=== PATIENT | male | born 1985 | race Caucasian/White ===

== ENCOUNTER 2023-12-31 15:34 | Emergency (ER) | payer BC ==
[~2023-12-31] VITALS: Ht 165.1 cm; Wt 104.3 kg
[2023-12-31] MEDS ORDERED: Lidocaine Hydrochloride 30 ML VIAL IM ONE (15:55)
[2023-12-31] MEDS ORDERED: Tdap Vaccine 0.5 ML SYR (Adult Vaccine) IM ONE (16:00)
[2023-12-31] MEDS ORDERED: Acetaminophen/Oxycodone 5 MG/325 MG TABLET PO ONE (16:00)
[2023-12-31] MEDS ORDERED: CEPHALEXIN500 M1 PO (17:11)
== END 2023-12-31 19:16 | disposition home or self-care (01) ==
LOC: ED 15:34
DX: S01.311A Laceration without foreign body of right ear, initial encounter (principal); V86.59XA Driver of other special all-terrain or other off-road motor vehicle injured in nontraffic accident, initial encounter; Y93.I9 Activity, other involving external motion; Y92.488 Other paved roadways as the place of occurrence of the external cause; Y99.8 Other external cause status